=== PATIENT | female | born 1965 | race Caucasian/White ===

== ENCOUNTER 2016-03-26 10:58 | Outpatient (CLI) | payer OTHER | END 2016-03-26 10:59 | disposition home or self-care (01) | DX: R09.02 Hypoxemia (principal); F17.210 Nicotine dependence, cigarettes, uncomplicated ==

== ENCOUNTER 2016-03-27 12:29 | Outpatient (CLI) | payer OTHER ==
[2016-03-27] MEDS ORDERED: GADOBUTROL 10 MMOL/10 ML VIAL IVP ONE (13:45)
== END 2016-03-27 12:30 | disposition home or self-care (01) ==
DX: K86.89 Other specified diseases of pancreas (principal); K76.0 Fatty (change of) liver, not elsewhere classified
CPT/HCPCS: 74183; A9585